=== PATIENT | female | born 1995 | race Caucasian/White ===

== ENCOUNTER 2016-12-04 22:52 | Emergency (ER) | payer OTHER ==
--- NOTE | 2016-12-05 01:52 | ER Document Report ---
ED ENT - General Mode of Arrival: Ambulatory Information source: Patient TRAVEL OUTSIDE OF THE [place] IN LAST 30 DAYS: No - HPI Patient complains to provider of: Throat problem Associated symptoms: Other - see above - General Chief Complaint: Sore Throat Stated Complaint: THROAT PAIN Notes: Patient is a 20 year old female who presents to the emergency department complaining of sore throat onset 2 days ago. Patient also complains of congestion, left ear pain, fever, diaphoresis, and cough. Patient reports that she slept most of yesterday as well and noticed some sores on the back of her throat. Patient states that she has been taking Mucinex, Theraflu, and Ibuprofen at home. 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 Patient denies . ( JOSELIN GONZALEZ) - Related Data Allergies/Adverse Reactions: cefprozil [From Cefzil] Allergy (Verified 12/05/16 02:34) Past Medical History - General Information source: Patient - Social History Smoking Status: Unknown if Ever Smoked Family History: Reviewed & Not Pertinent Review of Systems - Review of Systems Constitutional: See HPI, Diaphoresis, Fever EENT: See HPI, Ear pain, Nose congestion, Throat pain Cardiovascular: No symptoms reported Respiratory: See HPI, Cough Gastrointestinal: No symptoms reported Genitourinary: No symptoms reported Female Genitourinary: No symptoms reported Musculoskeletal: No symptoms reported Skin: No symptoms reported Hematologic/Lymphatic: No symptoms reported Neurological/Psychological: No symptoms reported -: Yes All other systems reviewed and negative Physical Exam - Vital signs Interpretation: Normal - General General appearance: Appears well, Alert - HEENT Head: Normocephalic, Atraumatic Tympanic membrane: Normal Pharynx: Normal - Respiratory Respiratory status: No respiratory distress Chest status: Nontender Breath sounds: Normal Chest palpation: Normal - Cardiovascular Rhythm: Regular Heart sounds: Normal auscultation Murmur: No - Extremities General upper extremity: Normal inspection General lower extremity: Normal inspection Knee: Abrasion - multiple heading abrasions to knees bilaterally Foot: Puncture wound - bottom of right foot, localized swelling, good pulses and perfusion, no drainage - Neurological Neuro grossly intact: Yes Cognition: Normal Orientation: AAOx4 [place] Coma Scale Eye Opening: Spontaneous [place] Coma Scale Verbal: Oriented [place] Coma Scale Motor: Obeys Commands Mahsa Coma Scale Total: 15 Speech: Normal - Psychological Associated symptoms: Normal affect, Normal mood - Skin Skin Temperature: Warm Skin Moisture: Dry Skin Color: Normal Course - Re-evaluation Re-evalutation: 12/05/16 03:37 Patient presents emergency Department chief complaint of congestion facial fullness ear pain and throat pain cough no fever no chills vomiting or diarrhea or chance of on examination she is well-appearing nontoxic in no acute distress she is nasally congested. HEENT examination is completely normal no nuchal rigidity. Patient concerned about the possibility of strep she does have very slight erythema when ahead and gave her shot of Pen-Vee K Nasonex over -the-counter Claritin decongestant for primary care physician in 3-5 days and discussed reasons for ED return sooner (KAYLEE HUDDLESTON) - Vital Signs Vital signs: Temp Pulse Resp BP Pulse Ox 98.9 F 91 20 136/71 H 100 12/05/16 02:22 12/05/16 02:22 12/05/16 02:22 12/05/16 02:22 12/05/16 02:22 Discharge - Discharge Clinical Impression: acute upper respiratory infection Condition: Stable Disposition: HOME, SELF-CARE Additional Instructions: Upper Respiratory Illness You have a viral infection of the respiratory passages -- a "cold." This common infection causes nasal congestion, drainage, and often sore throat and cough. It is caused by a virus and is highly contagious. The disease usually lasts a week or more, though the worst symptoms are usually over in 3 or 4 days. There is no "cure" for the viral infection -- it must run its course. If there is a complication, such as bacterial infection in the nose, sinuses, middle ear, or bronchial tubes, antibiotics may be required, but antibiotics won 't affect the virus. If you smoke, you should STOP!! Drink plenty of fluids. A humidifier may help. An expectorant medication or decongestant may make you more comfortable. Use acetaminophen or ibuprofen for fever or aches. See the doctor if fever persists over two or three days, if there is any significant worsening of your symptoms, or if you simply fail to improve as expected. Prescriptions: Mometasone Furoate [Nasonex] 1 spray NS Q12 #1 spray.pump Forms: Return to Work Scribe Attestation: 12/06/16 21:23 i personally performed the services described in the documentation, reviewed the documentation recorded by the scribe in my presence and accurately completely records my words and actions. (KAYLEE HUDDLESTON) Scribe Documentation - Scribe Written by Vianey:: vianey Mantilla, 12/05/16, 0236 acting as scribe for :: Petros
[2016-12-05] MEDS ORDERED: PENICILLIN G BENZATHINE 1.2 MILLION UNIT/2 ML DISP.SYRIN IM ONE (01:53)
[2016-12-05 02:23] VITALS: BP 136/71
== END 2016-12-05 02:18 | disposition home or self-care (01) ==
LOC: ER 22:52
DX: J06.9 Acute upper respiratory infection, unspecified (principal); H92.02 Otalgia, left ear; R50.9 Fever, unspecified; R61 Generalized hyperhidrosis; R05 Cough; J02.9 Acute pharyngitis, unspecified; R09.81 Nasal congestion; Z88.1 Allergy status to other antibiotic agents
CPT/HCPCS: 99282; 96372; J0561

== ENCOUNTER 2018-11-26 17:43 | Emergency (ER) | payer OTHER ==
[2018-11-26 18:18] VITALS: BP 150/83
--- NOTE | 2018-11-26 19:21 | ER Document Report ---
ED Head/Face/Scalp Injury - General Chief Complaint: Head Injury Stated Complaint: HEAD INJURY Time Seen by Provider: 11/26/18 19:03 Mode of Arrival: Ambulatory Information source: Patient Notes: 22-year-old female presents to ED for complaint of neck after she was hit in the head with a bed rail at work today. 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 She states that the time she had a bad headache but now is just normal headache. Patient is alert oriented respirations regular and unlabored speaking in full sentences walks with a even steady gait pupils equal and react to light. TRAVEL OUTSIDE OF THE [place] IN LAST 30 DAYS: No - HPI Patient complains to provider of: Contusion, Pain, Other - Minimal bruising. No: Swelling Injury to: Head Location of problem: Head Occurred: This afternoon Where: Work Timing: Better Context: Other - Bed rail fell on her head that was leaning up against a wall Loss consciousness: No loss of consciousness Remembers: Injury, Coming to hospital - Related Data Allergies/Adverse Reactions: cefprozil [From Cefzil] Allergy (Verified 11/26/18 19:08) Past Medical History - General Information source: Patient - Social History Smoking Status: Current Every Day Smoker Cigarette use (# per day): Yes - 1/4 pack/day Smoking Education Provided: Yes - Minutes Frequency of alcohol use: None Drug Abuse: None 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 [employer] Lives with: Friend Family History: Reviewed & Not Pertinent Patient has suicidal ideation: No Patient has homicidal ideation: No - Past Medical History Cardiac Medical History: Reports: None Pulmonary Medical History: Reports: None EENT Medical History: Reports: None Neurological Medical History: Reports: None Endocrine Medical History: Reports: None Renal/ Medical History: Reports: None Malignancy Medical History: Reports: None GI Medical History: Reports: None Musculoskeletal Medical History: Reports None Skin Medical History: Reports None Psychiatric Medical History: Reports: None Traumatic Medical History: Reports: None Infectious Medical History: Reports: None Surgical Hx: Negative Past Surgical History: Reports: None - Immunizations Immunizations up to date: Yes Review of Systems - Review of Systems Constitutional: No symptoms reported EENT: No symptoms reported Cardiovascular: No symptoms reported Respiratory: No symptoms reported Gastrointestinal: No symptoms reported. denies: Nausea, Vomiting Genitourinary: No symptoms reported Female Genitourinary: No symptoms reported Musculoskeletal: No symptoms reported Skin: No symptoms reported Hematologic/Lymphatic: No symptoms reported Neurological/Psychological: Headaches. denies: Confusion, Weakness, Gait changes, Loss of power, Paralysis, Seizure, Lost consciousness, Speech impairment, Numbness, Tingling -: Yes All other systems reviewed and negative Physical Exam - Vital signs Vitals: Temp Pulse Resp BP Pulse Ox 98.8 F 78 16 150/83 H 99 11/26/18 18:16 11/26/18 18:16 11/26/18 18:16 11/26/18 18:16 11/26/18 18:16 Interpretation: Normal - General General appearance: Appears well, Alert - HEENT Head: Ecchymosis, Tenderness Eyes: Normal Pupils: PERRL Visual king normal: Yes Ears: Normal External canal: Normal Tympanic membrane: Normal Sinus: Normal Nasal: Normal Mouth/Lips: Normal Mucous membranes: Normal Pharynx: Normal Neck: Normal - Respiratory Respiratory status: No respiratory distress Chest status: Nontender Breath sounds: Normal Chest palpation: Normal - Cardiovascular Rhythm: Regular Heart sounds: Normal auscultation Murmur: No - Abdominal Inspection: Normal Distension: No distension Bowel sounds: Normal Tenderness: Nontender Organomegaly: No organomegaly - Back Back: Normal, Nontender - Extremities General upper extremity: Normal inspection, Nontender, Normal color, Normal ROM, Normal temperature General lower extremity: Normal inspection, Nontender, Normal color, Normal ROM, Normal temperature, Normal weight bearing. No: Sierra's sign - Neurological Neuro grossly intact: Yes Cognition: Normal Orientation: AAOx4 [place] Coma Scale Eye Opening: Spontaneous [place] Coma Scale Verbal: Oriented [place] Coma Scale Motor: Obeys Commands [place] Coma Scale Total: 15 Speech: Normal Motor strength normal: LUE, RUE, LLE, RLE Sensory: Normal - Psychological Associated symptoms: Normal affect, Normal mood - Skin Skin Temperature: Warm - Minimal bruise to the left side of her forehead to her denominational minimal tenderness Skin Moisture: Dry Skin Color: Normal Course - Re-evaluation Re-evalutation: 11/26/18 19:51 She given head injury precautions verbally and written. Patient states she lives with friends and they can monitor her tonight. Patient states she is off tomorrow and will follow up with primary doctor. Patient was instructed that she needed to follow-up with work and let them know that she was in the emergency room. Patient was instructed that a CT is not appropriate at this ti me due to the risk of cancer outweighs the benefit of the CT in her case. She was given strict instructions of when to return to the ED. After performing a Medical Screening Examination, I estimate there is LOW risk for ACUTE GLAUCOMA, TEMPORAL ARTERITIS, MENINGITIS, INCRANIAL HEMORRHAGE, or ISCHEMIC STROKE thus I consider the discharge disposition reasonable. I have reevaluated this patient multiple times and no significant life threatening changes are noted. The patient and I have discussed the diagnosis and risks, and we agree with discharging home with close follow-up with the understanding that symptoms and presentations can change. We also discussed returning to the Emergency Department immediately if new or worsening symptoms occur. We have discussed the symptoms which are most concerning (e.g., changing or worsening symptoms, new numbness or weakness, vomiting, fever) that necessitate immediate return. - Vital Signs Vital signs: Temp Pulse Resp BP Pulse Ox 98.8 F 78 16 150/83 H 99 11/26/18 18:16 11/26/18 18:16 11/26/18 18:16 11/26/18 18:16 11/26/18 18:16 Discharge - Discharge Clinical Impression: Head injury Qualifiers: Encounter type: initial encounter Qualified Code(s): S09.90XA - Unspecified injury of head, initial encounter Condition: Stable Disposition: HOME, SELF-CARE Instructions: Family Physicians / Practices Additional Instructions: Head Injury Precautions At this point, there is no evidence that your head injury is serious. Observation is necessary, however. Take only clear liquids for the first few hours, unless told otherwise by the doctor. If no pain medication was prescribed, you may take acetaminophen according to the directions on the bottle. Do not take any medication that may alter your level of alertness (unless you've discussed it with the doctor first). Limit activity for the first 24 hours. Bed rest is best. During the first 24 hours, check to see approximately every two to three hours that the patient is easily arousable, responds normally, and can perform common tasks such as walking without difficulty. Contact your doctor or go to the hospital if any of the following things occur: Persistent vomiting, difficulty in arousing the patient, worsening or continued headache, or failure to improve as expected. Head injuries can cause symptoms that persist for a few days or even a few weeks. Acetaminophen Acetaminophen may be taken for pain relief or fever control. It's much safer than aspirin, offering a wider range of "safe" dosages. It is safe during . Some brand names are Tylenol, Panadol, Datril, Anacin 3, Tempra, and Liquiprin. Acetaminophen can be repeated every four hours. The following are maximum recommended dosages: WEIGHT Dose Drops Elixir Chewable(80mg) (LBS.) drprs=droppers tsp=teaspoon 6 40 mg .4 ml (1/2) 6-11 80 mg .8 ml (full) 1/2 tsp 1 tab 12-16 120 mg 1 1/2 drprs 3/4 tsp 1 1/2 tabs 17-23 160 mg 2 drprs 1 tsp 2 tabs 24-30 240 mg 3 drprs 1 1/2 tsp 3 tabs 30-35 320 mg 2 tsp 4 tabs 36-41 360 mg 2 1/4 tsp 4 1/2 tabs 42-47 400 mg 2 1/2 tsp 5 tabs 48-53 480 mg 3 tsp 6 tabs 54-59 520 mg 3 1/4 tsp 6 1/2 tabs 60-64 560 mg 3 1/2 tsp 7 tabs 65-70 600 mg 3 3/4 tsp 7 1/2 tabs 71-76 640 mg 4 tsp 8 tabs 77-82 720 mg 4 1/2 tsp 9 tabs 83-88 800 mg 5 tsp 10 tabs >89 pounds or adults 650 mg to 900 mg Acetaminophen can be repeated every four hours. Maximum daily dose not to exceed 4000 mg. These maximum recommended dosages are slightly higher than the dosages written on the product container, but these dosages are very safe and well below the toxic dosage for acetaminophen. Ibuprofen Ibuprofen is an excellent, safe drug for pain control. In addition, it has potent antiinflammatory effects which are beneficial, especially in the treatment of injuries, arthritis, or tendonitis. It's best to take ibuprofen with food. Persons with ulcer disease or allergy to aspirin should notify their physician of this before taking ibuprofen. Take the medication exactly as prescribed. Don't take additional doses unless instructed to do so by your doctor. If you develop wheezing, shortness of breath, hives, faintness, stomach pain, vomiting, or dark black stools, return for re-evaluation at once. Ice Packs Apply ice packs frequently against the painful area. Many different schedules are recommended, such as "20 minutes on, 20 minutes off" or "one hour ice, two hours rest." If you need to work, you may need to go longer between ice treatments. You should plan to have the area ice packed AT LEAST one fourth of the time. The ice should be applied over the wrap, tape, or splint, or over a layer of cloth -- not directly against the skin. Some ice bags have a built-in cloth and can be put directly on the skin. FOLLOW-UP CARE: If you have been referred to a physician for follow-up care, call the physicians office for an appointment as you were instructed or within the next two days. If you experience worsening or a significant change in your symptoms, notify the physician immediately or return to the Emergency Department at any time for re-evaluation. Forms: Elevated Blood Pressure
== END 2018-11-26 19:29 | disposition home or self-care (01) ==
LOC: ER 17:43
DX: S00.83XA Contusion of other part of head, initial encounter (principal); R51 Headache; W20.8XXA Other cause of strike by thrown, projected or falling object, initial encounter; Y99.0 Civilian activity done for income or pay; F17.210 Nicotine dependence, cigarettes, uncomplicated; Z71.6 Tobacco abuse counseling; Z88.1 Allergy status to other antibiotic agents
CPT/HCPCS: 99283

== ENCOUNTER 2019-04-29 10:32 | Day surgery (SDC) | payer OTHER ==
[2019-04-29] MEDS ORDERED: ONDANSETRON HCL INJ/PF 4 MG/2 ML SDV ONE (12:09)
[2019-04-29] MEDS ORDERED: GLYCOPYRROLATE INJ 0.4 MG/2 ML VIAL ONE (12:10)
[2019-04-29] MEDS ORDERED: MIDAZOLAM 2 MG/2 ML INJ ONE (12:10)
[2019-04-29] MEDS ORDERED: FENTANYL CITRATE INJ/PF 100 MCG/2 ML AMPUL ONE (12:10)
[2019-04-29] MEDS ORDERED: DEXAMETHASONE SOD PHOS INJ 10 MG/1 ML VIAL ONE (12:10)
[2019-04-29] MEDS ORDERED: SUCCINYLCHOLINE CHLORIDE INJ 200 MG/10 ML VIAL ONE (12:11)
[2019-04-29] MEDS ORDERED: PROPOFOL INJ 200 MG/20 ML VIAL IV ONE (12:11)
[2019-04-29] MEDS ORDERED: BUPIVACAINE HCL 0.5%/EPI 1:200000 INJ 1.8 ML CARTRIDGE ONE (12:14)
[2019-04-29] MEDS: OXYCODONE-ACETAMINOPHEN 5-325 MG TABLET ONE ×2 (13:40→14:08)
[2019-04-29] MEDS ORDERED: OXYCODONE-ACETAMINOPHEN 5-325 MG TABLET ONE (13:42)
--- NOTE | 2019-05-01 15:10 | Operative Report ---
Operative Report-[facility] Operative Report: DATE OF OPERATION: April 29, 2019 PREOPERATIVE DIAGNOSIS: 1. Acute recurrent tonsillitis 2. Chronic tonsillitis 3. Tonsil stones POSTOPERATIVE DIAGNOSIS: 1. Acute recurrent tonsillitis 2. Chronic tonsillitis 3. Tonsil stones PROCEDURE: 1. Bilateral tonsillectomy patient age greater than 12 Primary Surgeon of Record: Dr. Pedro Morrison RESEARCH LABORATORY SPECIALIST: None Anesthesia Staff: STEFANO Domingo ANESTHESIA: General Endotracheal Tube Anesthesia DRAINS: None SPONGE COUNT: Verified Needle Count: N/A SPECIMEN/MATERIALS FORWARD TO THE LAB: 1. Left and Right Tonsillar Tissue ESTIMATED BLOOD LOSS: 5 mL IV FLUIDS: 650 mL COMPLICATIONS: None Findings: 1. The tonsils were 3+ in size, and were highly cryptic bilateral, and the adenoid was noted to be 1+ in size. 2. The soft palatal tissues were redundant in nature and the uvula was unremarkable in appearance. INDICATIONS: This is a 23-year-old female patient who was seen and evaluated in the [facility] office. The patient had been referred for and the patient complained of a history of acute recurrent tonsillitis episodes occurring each year requiring antibiotics over the years. The patient experiences significant sore throat discomfort, poor p.o. intake, decreased quality of sleep, and misses days from work each year due to the episodes. After extensive discussion with the patient the recommendation and plan was to proceed with a tonsillectomy. The procedure and all of the risks and complications were all discussed in detail with the patient. They voiced an understanding of the described surgical plan, were in agreement, and consent was obtained. DESCRIPTION OF OPERATIVE PROCEDURE: The patient was taken to the main operating room and was placed on the operating room table in the supine position. Appropriate monitors were placed. Using mask and IV access general anesthesia was induced. The patient was next transorally intubated without difficulty. The table was then rotated 90 and the patient was positioned and prepped for tonsil and adenoid surgery. The lips, teeth, tongue, and gums were inspected and noted to be without defect. The patient had a mouth gag inserted. It was opened and the patient was placed into suspension. There was a soft catheter passed through the nose that was used to suspend the soft palate. Findings are as noted above. At this point Marcaine with epinephrine was injected around the tonsillar areas to establish a local block on each side. The plasma J-hook device was used to dissect and remove the tonsils from the tonsillar fossae without difficulty. This was also used to provide adequate hemostasis. Normal saline irrigation was performed and was suctioned. Adequate hemostasis was noted. The soft catheter was released and removed from the patients nose. The patient was next released from suspension and the mouth gag was closed. It was opened again and there was again no bleeding noted. It was then removed from the patient's mouth without difficulty. There was no damage to the lips, teeth, tongue, or gums noted. The patient was then returned to the anesthesia staff and was allowed to emerge from general anesthesia. The patient was extubated in the operating room and was transported to the post anesthesia recovery unit in stable condition. There were no complications.
== END 2019-04-29 14:45 | disposition home or self-care (01) ==
LOC: SC 10:32
PROVIDERS: ATTEND Otolaryngology
DX: J03.91 Acute recurrent tonsillitis, unspecified (principal); J35.01 Chronic tonsillitis; J35.8 Other chronic diseases of tonsils and adenoids; L08.9 Local infection of the skin and subcutaneous tissue, unspecified; J30.9 Allergic rhinitis, unspecified; F17.210 Nicotine dependence, cigarettes, uncomplicated
CPT/HCPCS: 88304 ×2; 42826; J2250; J3490; J3010; J0330; J2405; J2704; J1100; 170

== ENCOUNTER 2019-06-29 23:37 | Emergency (ER) | payer OTHER ==
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
[2019-06-30] MEDS ORDERED: DIPH/PERTUSS(ACELL)/TETANUS VAC/PF 0.5 ML SYR (>=10YO) IM ONE (00:33)
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
[2019-06-30] MEDS ORDERED: DOXYCYCLINE HYCLATE 100 MG TABLET PO ONE (00:44)
[2019-06-30 00:59] VITALS: BP 129/88
== END 2019-06-30 00:59 | disposition home or self-care (01) ==
LOC: ER 23:37
DX: S80.851A Superficial foreign body, right lower leg, initial encounter (principal); W34.010A Accidental discharge of airgun, initial encounter; Z23 Encounter for immunization; F17.200 Nicotine dependence, unspecified, uncomplicated
CPT/HCPCS: 90471; 90715; 99283